=== PATIENT | male | born 1990 | race Caucasian/White ===

== ENCOUNTER 2020-10-13 21:17 | Emergency (ER) | payer BC, SELFPAY ==
[2020-10-13 21:22] VITALS: BP 152/88; PULSE 89; RESP 18; TEMP 35.7; O2SAT 100
--- NOTE | 2020-10-13 21:45 | ECG_ITS ---
Measurements Intervals [place] Rate: 83 P: 62 AR: 112 QRS: 68 QRSD: 94 T: 70 QT: 373 QTc: 440 Interpretive Statements SINUS RHYTHM WITH SINUS ARRHYTHMIA WITH SHORT AR INTERVAL ST ELEVATION IN ANTEROLAT/INF LEADS- PROBABLY EARLY REPOLARIZATION ABNORMALITY BORDERLINE ECG Electronically Signed On 10-14-2020 8:16:55 AGRICULTURE TECHNICIAN by Phill Desai D.O.
--- NOTE | 2020-10-13 21:51 | ED.GENADULT ---
HPI - General Adult General Chief complaint: Unspecified Stated complaint: left arm feels weird Time Seen by Provider: 10/13/20 21:40 History of Present Illness HPI narrative: Patient a 29-year-old gentleman who presents the emergency department with chief complaint of the left arm tingling. Patient states that he got upset and then noticed that he started having some tingling in his left arm and some pressure in his chest. Patient states that he also has some pain in his upper back and states that he was concerned that he was having a panic attack although he was also afraid that he may be having a heart attack. Patient states he starting to feel better now that he is calm down patient reports no prior medical history does report that he smokes cigarettes no history of cardiac disease at an early age no history of any connective tissue disorder or clotting disorder. Related Data Home Medications Medication Instructions Recorded Confirmed nicotine 1 patch TRANSDERMAL DAILY 10/13/20 Allergies Allergy/AdvReac Type Severity Reaction Status Date / Time No Known Allergies Allergy Verified 10/13/20 21:26 Review of Systems Review of Systems: Narrative: A 10 system review of systems was completed on the patient and is negative except for what is stated in the HPI. Nursing and ancillary documentation was reviewed. [facility] Social History Social History Gender identity (if verbalized by the patient): Male Sexual Orientation (if Verbalized by the Patient): Straight or Heterosexual Comments Patient denies significant past medical history Social history the patient smokes cigarettes and is currently attempting to quit Exam Narrative: Exam Narrative: GENERAL: Well-appearing, well-nourished, and in no acute distress. HEAD: Normocephalic, atraumatic. EYES: PERRLA and EOMI. ENT: Nares clear, no rhinorrhea or epistaxis. Mucous membranes moist. NECK: Supple. CHEST: Clear to auscultation. No respiratory distress. HEART: Regular rate and rhythm. No murmur heard. Normal peripheral pulses. ABDOMEN: Soft, nontender, nondistended, normal active bowel sounds. EXTREMITIES: Normal range of motion. No edema. SKIN: Warm, dry, no rash. NEURO: No focal deficits. Alert and oriented x3. PSYCH: Normal mood and affect. Course Course Emergency Course: EKG shows a sinus rhythm rate of [address] elevation or ST depression Vital Signs Vital signs: Vital Signs Temperature 35.7 C L 10/13/20 21:22 Pulse Rate 89 10/13/20 21:22 Respiratory Rate 18 10/13/20 21:22 Blood Pressure 152/88 H 10/13/20 21:22 Pulse Oximetry 100 10/13/20 21:22 Temperature 35.7 C L 10/13/20 21:22 Pulse Rate 89 10/13/20 21:22 Respiratory Rate 18 10/13/20 21:22 Blood Pressure 152/88 H 10/13/20 21:22 Pulse Oximetry 100 10/13/20 21:22 Medical Decision Making Vital Signs Vital Signs: Vital Signs Temperature 35.7 C L 10/13/20 21:22 Pulse Rate 89 10/13/20 21:22 Respiratory Rate 18 10/13/20 21:22 Blood Pressure 152/88 H 10/13/20 21:22 Pulse Oximetry 100 10/13/20 21:22 Temperature 35.7 C L 10/13/20 21:22 Pulse Rate 89 10/13/20 21:22 Respiratory Rate 18 10/13/20 21:22 Blood Pressure 152/88 H 10/13/20 21:22 Pulse Oximetry 100 10/13/20 21:22 Discharge Plan Discharge Clinical Impression: Atypical chest pain Patient Disposition: Home, Self-Care Condition: Stable Instructions: Antibiotic Form, Chest Pain (ED), Panic Attack (ED) Prescriptions: No Action nicotine 14 mg/24 hr Patch 24 Hour 1 patch TRANSDERMAL DAILY RF: 0 Follow-up/Referrals: Rex,Demian Alejo MD [Primary Care Provider] - 1 Week Time of Disposition: 22:21
[2020-10-13 22:36] VITALS: BP 117/73; PULSE 69; RESP 16; TEMP 36.9; O2SAT 100
== END 2020-10-13 22:37 | disposition home or self-care (01) ==
PROVIDERS: Emergency Provider Emergency Medicine; PCP Family Medicine
DX: R07.89 Other chest pain (principal); F17.210 Nicotine dependence, cigarettes, uncomplicated; R94.31 Abnormal electrocardiogram [ECG] [EKG]
CPT/HCPCS: 93005; 99283

== ENCOUNTER 2022-02-19 12:49 | Outpatient (CLI) | payer BC, SELFPAY ==
[2022-02-19 13:07] LABS: Basophils Percent Auto 0.6 % (0.2-1.2); Eosinophils Absolute Auto 0.1 K/mm3 (0-0.3); Eosinophils Percent Auto 1.4 % (0-4.4); Hematocrit 46.3 % (42.0-52.0); Hemoglobin 15.7 g/dL (14.0-18.0); Immature Granulocyte Absolute 0.04 K/mm3 (0.00-0.031); Immature Granulocyte Percent A 0.6 % (0-0.5); Lymphocytes Absolute Auto 1.51 K/mm3 (0.9-3.2); Lymphocytes Percent Auto 23.5 % (18.3-44.2); Mean Corpuscular HGB Conc 33.9 g/dl (32-36); Mean Corpuscular Volume 94.5 fl (80-100); Mean Platelet Volume 9.5 fl (7.4-10.4); Monocytes Absolute Auto 0.4 K/mm3 (0.1-0.6); Monocytes Percent Auto 6.1 % (2.6-8.5); Neutrophils Absolute Auto 4.4 K/mm3 (1.3-6.7); Neutrophils Percent Auto 67.8 % (45.5-73.1); Platelet Count Result 239 k/mm3 (150-375); Red Cell Distribution Width 12.4 % (11.5-14.5); White Blood Count 6.4 K/mm3 (4.5-10.0)
[2022-02-19 13:17] LABS: Alanine Aminotransferase 23 U/L (6-50); Albumin Level 4.8 g/dL (3.5-5.1); Alkaline Phosphatase 91 U/L (38-126); Anion Gap 8 mmol/L (8-16); Aspartate Amino Transferase 26 U/L (17-59); Bilirubin,Total 1.9 mg/dL (0.2-1.3); Blood Urea Nitrogen 11 mg/dL (9-20); Calcium 9.1 mg/dL (8.4-10.2); Carbon Dioxide 28 mmol/L (22-30); Chloride 103 mmol/L (98-107); Cholesterol 165 mg/dL (0-200); Estimated Glomerular Filt Rate > 60; Glucose 101 mg/dL (65-110); HDL Direct 59 mg/dL; Potassium 3.9 mmol/L (3.4-5.0); Sodium 139 mmol/L (137-145); Triglycerides 109 mg/dL (<150); Uric Acid 7.1 mg/dL (3.5-8.5)
[2022-02-19 13:28] LABS: LDL Cholesterol Direct 69 mg/dL
== END 2022-02-19 12:50 | disposition home or self-care (01) ==
LOC: ANHLAB 12:52
PROVIDERS: PCP Family Medicine; Visit Provider Family Medicine
DX: F32.A Depression, unspecified (principal); F41.9 Anxiety disorder, unspecified; M24.412 Recurrent dislocation, left shoulder; F17.200 Nicotine dependence, unspecified, uncomplicated; R10.9 Unspecified abdominal pain; R00.2 Palpitations
CPT/HCPCS: 36415; 80053; 80061; 84443; 84550; 85025

== ENCOUNTER 2022-04-18 01:41 | Emergency (ER) | payer BC, SELFPAY ==
[2022-04-18 01:47] VITALS: BP 153/98; PULSE 57; RESP 16; TEMP 36.4; O2SAT 100
[2022-04-18 02:08] LABS: Basophils Absolute Auto 0.1 K/mm3 (0.0-0.1); Basophils Percent Auto 0.6 % (0.2-1.2); Eosinophils Absolute Auto 0.1 K/mm3 (0-0.3); Eosinophils Percent Auto 1.1 % (0-4.4); Hematocrit 43.7 % (42.0-52.0); Hemoglobin 15.3 g/dL (14.0-18.0); Immature Granulocyte Absolute 0.04 K/mm3 (0.00-0.031); Immature Granulocyte Percent A 0.5 % (0-0.5); Lymphocytes Absolute Auto 2.61 K/mm3 (0.9-3.2); Mean Corpuscular Hemoglobin 31.9 pg (26-34); Mean Corpuscular Volume 91.2 fl (80-100); Mean Platelet Volume 9.4 fl (7.4-10.4); Monocytes Absolute Auto 0.7 K/mm3 (0.1-0.6); Monocytes Percent Auto 8.2 % (2.6-8.5); Neutrophils Absolute Auto 4.5 K/mm3 (1.3-6.7); Neutrophils Percent Auto 56.6 % (45.5-73.1); Platelet Count Result 254 k/mm3 (150-375); Red Blood Count 4.79 M/mm3 (4.6-6.20); White Blood Count 7.9 K/mm3 (4.5-10.0)
[2022-04-18 02:09] LABS: Appearance Urine Clear (Clear); Bilirubin Urine Negative (Negative); Blood Urine Negative (Negative); Color Urine Yellow (Yellow); Glucose Urine UA Negative (Negative); Ketones Urine Negative (Negative); Leukocyte Esterase Ur Negative LEU/UL (Negative); Nitrate Urine Negative (Negative); Protein Urine Negative (Negative)
[2022-04-18 02:18] LABS: Alanine Aminotransferase 37 U/L (6-50); Albumin Level 4.6 g/dL (3.5-5.1); Alkaline Phosphatase 83 U/L (38-126); Anion Gap 14 mmol/L (8-16); Aspartate Amino Transferase 39 U/L (17-59); Bilirubin,Total 1.9 mg/dL (0.2-1.3); Blood Urea Nitrogen 7 mg/dL (9-20); Calcium 9.2 mg/dL (8.4-10.2); Carbon Dioxide 25 mmol/L (22-30); Chloride 98 mmol/L (98-107); Estimated CRCL calculation 103 ml/min; Estimated Glomerular Filt Rate > 60; Glucose 112 mg/dL (65-110); Lipase 42 U/L (23-300); Potassium 3.7 mmol/L (3.4-5.0); Sodium 137 mmol/L (137-145)
[2022-04-18 02:34] LABS: Add Urine Microscopic? NO
--- NOTE | 2022-04-18 03:11 | PC.NURSE ---
Patient report given to HOLLY Berry. All questions answered and care of patient transferred.
--- NOTE | 2022-04-18 03:17 | ED.NAVMDI ---
HPI - Nausea/Vomiting/Diarrhea General Chief complaint: Nausea/Vomiting/Diarrhea Stated complaint: n/v Time Seen by Provider: 04/18/22 02:55 History of Present Illness HPI Narrative: This is a 31-year-old male with past medical history of anxiety, presenting the emergency department complaining of nausea and vomiting for the past 27 hours after stopping drinking. Patient states he over the past approximately 5 months has drank half a pint of alcohol a day. He states he drank more than usual approximately 27 hours ago and has since then had the worst hangover ever . He denies hallucinations or loss of consciousness. Related Data Home Medications Medication Instructions Recorded Confirmed nicotine 14 mg/24 hr daily 1 patch transdermal DAILY 10/13/20 transdermal patch Allergies Allergy/AdvReac Type Severity Reaction Status Date / Time No Known Allergies Allergy Verified 10/13/20 21:26 Review of Systems Review of Systems: CONSTITUTIONAL: Denies fever, chills, or sweats. EYES: Denies visual changes, redness, or discharge. ENT: Denies rhinorrhea, congestion, sore throat, or otalgia. CARDIOVASCULAR: Denies chest pain, palpitations, or edema. RESPIRATORY: Denies cough or dyspnea. GASTROINTESTINAL: Nausea vomiting diarrhea denies abdominal pain GENITOURINARY: Denies dysuria or hematuria. SKIN: Denies rash or itching. MUSCULOSKELETAL: Denies back pain, joint pain, or myalgia. NEUROLOGIC: Headache denies numbness, dizziness, or weakness. PSYCHIATRIC: Denies anxiety or depression. PENDING SALE TO [facility] Social History Social History Gender identity (if verbalized by the patient): Male Sexual Orientation (if Verbalized by the Patient): Straight or Heterosexual Exam Narrative: GENERAL: Well-appearing, well-nourished, and in no acute distress. HEAD: Normocephalic, atraumatic. EYES: PERRLA and EOMI. ENT: Nares clear, no rhinorrhea or epistaxis. Mucous membranes moist. Oropharynx without tonsillar hypertrophy exudate or other lesions. NECK: Supple. No adenopathy or masses. No carotid bruits or JVD CHEST: Clear to auscultation. No respiratory distress. No wheezes rales or rhonchi HEART: Regular rate and rhythm. No murmur heard. Normal peripheral pulses. ABDOMEN: Soft, nontender, nondistended, normal active bowel sounds. EXTREMITIES: Normal range of motion. No edema. SKIN: Warm, dry, no rash. NEURO: No focal deficits. Alert and oriented x3. No noted tremors, no noted ataxia, strength 5/5 in all extremities, sensation intact, cranial nerves II through XII intact PSYCH: Normal mood and affect. Course Course Emergency Course: 03:20 - Initial CIWA 8 (mild withdrawal). Will treat patient with Librium taper. Discussed benefits of quitting alcohol and risks of continuing drinking including potential liver failure. Review of [facility] is not concerning for medication abuse. 03:59 - The patient requests to not take Librium at this time as he is anticipating driving and going to work. Discussed return emergency precautions including signs/symptoms concerning for delirium tremens. The patient voiced understanding is comfortable with the plan. All questions answered to his satisfaction. Vital Signs Vital signs: Vital Signs Temperature 97.5 F L 04/18/22 01:47 Pulse Rate 57 L 04/18/22 01:47 Respiratory Rate 16 04/18/22 01:47 Blood Pressure 153/98 H 04/18/22 01:47 Pulse Oximetry 100 04/18/22 01:47 Temperature 97.5 F L 04/18/22 01:47 Pulse Rate 57 L 04/18/22 01:47 Respiratory Rate 16 04/18/22 01:47 Blood Pressure 153/98 H 04/18/22 01:47 Pulse Oximetry 100 04/18/22 01:47 MDM - Nausea/Vomiting/Diarrhea MDM Narrative Medical decision making narrative: Plan: Labs, CIWA, reassess Differential Diagnosis Differential diagnosis: Likely other (Alcohol withdrawal, metabolic abnormality, other) Lab Data Result diagrams: 04/18/22 01:55
[2022-04-18 04:17] VITALS: BP 124/84; PULSE 82; RESP 18; O2SAT 100
== END 2022-04-18 04:20 | disposition home or self-care (01) ==
PROVIDERS: Emergency Provider Preventive Medicine Aerospace Medicine; PCP Family Medicine
DX: F10.230 Alcohol dependence with withdrawal, uncomplicated (principal); R11.2 Nausea with vomiting, unspecified
CPT/HCPCS: 36415; 80053; 81003; 83690; 85025; 99283

== ENCOUNTER 2023-12-28 06:10 | Emergency (ER) | payer BC, SELFPAY ==
--- NOTE | ~2023-12-28 | CT_ITS ---
EXAMINATION: CT brain wo con DATE: 12/28/2023 07:34 INDICATION: Headache. TECHNIQUE: Computed tomography (CT) of the head was performed without intravenous contrast. The mA wa s adjusted according to patient size. Iterative reconstruction technique was employed. The dose-lengt h product was 605.33 mGy-cm. COMPARISON: None FINDINGS: There is no intracranial hemorrhage, acute infarction, or abnormal intracranial mass lesion . The ventricles are normal in size. The orbits are normal. The mastoid air cells are normal. The par anasal sinuses are clear. IMPRESSION: 1. Normal brain. Reviewed, dictated and finalized at location A. IMPRESSION: 1. Normal brain.
[2023-12-28 06:13] VITALS: BP 133/87; PULSE 69; RESP 18; TEMP 36.4; O2SAT 100
--- NOTE | 2023-12-28 06:38 | ED.GENADULT ---
HPI - General Adult General Chief complaint: Unspecified Stated complaint: Lightheaded, unable to focus, muscle cramps? Time Seen by Provider: 12/28/23 07:10 History of Present Illness HPI narrative: Patient is a 33-year-old male who presents to the emergency department this morning with multiple complaints. Patient states that throughout the past week has been having headaches, muscle tightness, lightheadedness, and this weird feeling in his left arm and left leg. Patient does not describe the feeling as numbness or tingling, states that it feels tight. Patient states that his girlfriend was sick approximately 1 week ago and had a sore throat, presumably strep but she was not formally diagnosed with strep. Patient denies any chest pain or shortness of breath, denies any nausea or vomiting and has abdominal pain. He states that he tried to wait out his symptoms at home throughout this past week, however, his symptoms are not improving and finally decided to come to the emergency department for further evaluation. He denies any fevers or chills at home, denies any significant past medical history. Patient states that he used to be an alcoholic but has quit approximately 1 month ago. Related Data Home Medications Medication Instructions Recorded Confirmed nicotine 14 mg/24 hr daily 1 patch transdermal DAILY 10/13/20 transdermal patch Allergies Allergy/AdvReac Type Severity Reaction Status Date / Time No Known Allergies Allergy Verified 10/13/20 21:26 Review of Systems Review of Systems: All systems are reviewed and are negative unless stated otherwise in the HPI. [facility] Social History Social History Gender identity (if verbalized by the patient): Male Sexual Orientation (if Verbalized by the Patient): Straight or Heterosexual Exam Narrative: General: Alert, awake, afebrile, in no acute distress. HEENT: PERRL, no rhinorrhea, no post nasal drip, oropharynx clear. Neck: Trachea midline, no JVD, no lymphadenopathy. Cardiovascular: Regular rate and rhythm, no murmurs, rubs or gallops, no peripheral edema. Respiratory: Clear to auscultation bilaterally, no tachypnea, no wheezing, no rhonchi, no rubs, no respiratory distress. Abdomen: Soft, nontender, nondistended, no rebound, no guarding, no peritoneal signs. Musculoskeletal: No joint swelling or deformity, normal muscle tone. Skin: No rashes or petechia, no signs of infection. Psychiatric: Alert and oriented, normal behavior and judgment for situation. Neurological: Alert and oriented to person, place, and time. Follows all commands. No focal deficits, 5/5 motor strength of the bilateral upper and lower extremity, sensation intact bilateral upper and lower extremity, cranial nerves 2-12 grossly intact, speech is clear and fluent. Course Vital Signs Vital signs: Vital Signs Temperature 97.6 F 12/28/23 06:13 Pulse Rate 69 12/28/23 06:13 Respiratory Rate 18 12/28/23 06:13 Blood Pressure 133/87 12/28/23 06:13 Pulse Oximetry 100 12/28/23 06:13 Oxygen Delivery Room Air 12/28/23 06:13 Temperature 97.6 F 12/28/23 06:13 Pulse Rate 63 12/28/23 08:48 Respiratory Rate 15 12/28/23 08:48 Blood Pressure 121/88 12/28/23 08:48 Pulse Oximetry 98 12/28/23 08:48 Oxygen Delivery Room Air 12/28/23 06:13 Medical Decision Making MDM Narrative Medical decision making narrative: The patient was evaluated by myself in the emergency department. History is obtained from patient who is an independent historian and physical exam was performed. External medical records were reviewed at this time. IV was established and pertinent tests were ordered. Patient was administered a 1 L IV fluid bolus with normal saline. EKG was obtained which revealed sinus rhythm at a rate of 71 beats per minute. No ST changes, T wave inversions or evidence of acute ischemia. EKG was independent
--- NOTE | 2023-12-28 06:39 | ECG_ITS ---
SEE SCANNED COPY FOR CONFIRMED REPORT MTDD
[2023-12-28 07:03] VITALS: BP 128/92; PULSE 77; RESP 14; O2SAT 100
[2023-12-28 07:08] LABS: Basophils Percent Auto 0.5 % (0.2-1.2); Eosinophils Absolute Auto 0.2 K/mm3 (0-0.3); Eosinophils Percent Auto 2.1 % (0-4.4); Hematocrit 48.2 % (42.0-52.0); Hemoglobin 16.4 g/dL (14.0-18.0); Immature Granulocyte Absolute 0.02 K/mm3 (0.00-0.031); Immature Granulocyte Percent A 0.2 % (0-0.5); Lymphocytes Absolute Auto 3.13 K/mm3 (0.9-3.2); Lymphocytes Percent Auto 38.5 % (18.3-44.2); Mean Corpuscular Hemoglobin 30.1 pg (26-34); Mean Corpuscular Volume 88.4 fl (80-100); Mean Platelet Volume 10.1 fl (7.4-10.4); Monocytes Absolute Auto 0.5 K/mm3 (0.1-0.6); Monocytes Percent Auto 6.4 % (2.6-8.5); Neutrophils Absolute Auto 4.2 K/mm3 (1.3-6.7); Neutrophils Percent Auto 52.3 % (45.5-73.1); Platelet Count Result 257 k/mm3 (150-375); Red Blood Count 5.45 M/mm3 (4.6-6.20); Red Cell Distribution Width 12.5 % (11.5-14.5); White Blood Count 8.1 K/mm3 (4.5-10.0)
[2023-12-28 07:11] VITALS: PULSE 78
[2023-12-28 07:20] LABS: Alanine Aminotransferase 21 U/L (6-50); Alkaline Phosphatase 83 U/L (38-126); Anion Gap 10 mmol/L (4-12); Aspartate Amino Transferase 26 U/L (17-59); Bilirubin,Total 2.6 mg/dL (0.2-1.3); Blood Urea Nitrogen 14 mg/dL (9-20); Calcium 9.4 mg/dL (8.4-10.2); Carbon Dioxide 27 mmol/L (22-30); Chloride 103 mmol/L (98-107); Estimated CRCL calculation 101 ml/min; Estimated Glomerular Filt Rate > 60; Glucose 92 mg/dL (65-110); Potassium 3.6 mmol/L (3.4-5.0); Sodium 140 mmol/L (137-145)
[2023-12-28] MEDS: SODIUM CHLORIDE 0.9% IV 1,000 ML 999 ML IV CONT (07:21)
[2023-12-28 07:46] LABS: Creatine Kinase 84 U/L (55-170)
[2023-12-28 08:08] LABS: Influenza A QL RT-PCR Negative (Negative); Influenza B QL RT-PCR Negative (Negative); RSV RNA, RT-PCR Negative (Negative); SARS-CoV-2 RNA PCR Negative (Negative)
[2023-12-28 08:48] VITALS: BP 121/88; PULSE 63; RESP 15; O2SAT 98
== END 2023-12-28 08:49 | disposition home or self-care (01) ==
PROVIDERS: Emergency Medicine; Emergency Provider Emergency Medicine; PCP Family Medicine
DX: B34.9 Viral infection, unspecified (principal); E80.6 Other disorders of bilirubin metabolism; Z20.822 Contact with and (suspected) exposure to COVID-19
CPT/HCPCS: 36415; 70450; 80053; 82248; 82550; 83735; 85025; 87637; 93005; 96360; 99284; J7030

== ENCOUNTER 2023-12-30 20:52 | Emergency (ER) | payer BC, SELFPAY ==
--- NOTE | ~2023-12-30 | XR_ITS ---
EXAMINATION: XR chest 2V 12/30/2023 21:15 INDICATION: Worsening chest pain PROCEDURE: 2 view chest COMPARISON: No prior studies for comparison. FINDINGS: The lungs are clear. The cardiomediastinal silhouette is within normal limits. There are no pleural effusions. There is no pneumothorax suspected. IMPRESSION: 1: NO ACUTE CARDIOPULMONARY DISEASE. Reviewed, dictated and finalized at location A.
--- NOTE | 2023-12-30 20:53 | ECG_ITS ---
SEE SCANNED COPY FOR CONFIRMED REPORT MTDD
[2023-12-30 21:01] VITALS: BP 132/75; PULSE 75; RESP 16; TEMP 36.5; O2SAT 100
[2023-12-30 21:34] LABS: Basophils Percent Auto 0.3 % (0.2-1.2); Eosinophils Absolute Auto 0.1 K/mm3 (0-0.3); Hematocrit 50.3 % (42.0-52.0); Hemoglobin 17.6 g/dL (14.0-18.0); Immature Granulocyte Absolute 0.03 K/mm3 (0.00-0.031); Immature Granulocyte Percent A 0.5 % (0-0.5); Lymphocytes Absolute Auto 1.47 K/mm3 (0.9-3.2); Lymphocytes Percent Auto 25.4 % (18.3-44.2); Mean Corpuscular Hemoglobin 30.3 pg (26-34); Mean Corpuscular Volume 86.6 fl (80-100); Monocytes Absolute Auto 0.4 K/mm3 (0.1-0.6); Monocytes Percent Auto 6.2 % (2.6-8.5); Neutrophils Absolute Auto 3.9 K/mm3 (1.3-6.7); Neutrophils Percent Auto 66.6 % (45.5-73.1); Platelet Count Result 272 k/mm3 (150-375); Red Blood Count 5.81 M/mm3 (4.6-6.20); Red Cell Distribution Width 12.5 % (11.5-14.5); White Blood Count 5.8 K/mm3 (4.5-10.0)
[2023-12-30 21:40] VITALS: PULSE 79; O2SAT 99
[2023-12-30 21:44] LABS: Alanine Aminotransferase 20 U/L (6-50); Albumin Level 5.3 g/dL (3.5-5.1); Alkaline Phosphatase 78 U/L (38-126); Anion Gap 8 mmol/L (4-12); Aspartate Amino Transferase 23 U/L (17-59); Bilirubin,Total 3.1 mg/dL (0.2-1.3); Blood Urea Nitrogen 8 mg/dL (9-20); Calcium 10.1 mg/dL (8.4-10.2); Carbon Dioxide 29 mmol/L (22-30); Chloride 103 mmol/L (98-107); Estimated CRCL calculation 85 ml/min; Estimated Glomerular Filt Rate > 60; Glucose 91 mg/dL (65-110); Lipase 60 U/L (23-300); Potassium 4.1 mmol/L (3.4-5.0); Sodium 140 mmol/L (137-145)
[2023-12-30 21:45] VITALS: BP 123/86; PULSE 71; RESP 13; O2SAT 99
[2023-12-30 21:45] LABS: Partial Thromboplastin Time 29.9 Seconds (22.3-36.8); Prothrombin Time 13.1 Seconds (11.1-14.7)
[2023-12-30] MEDS: ASPIRIN 81 MG CHEWABLE TABLET 324 MG PO (21:50)
[2023-12-30 21:55] LABS: Troponin I < 0.012 ng/mL (0.000-0.034)
--- NOTE | 2023-12-30 22:45 | ED.CHESTPAIN ---
HPI - Chest Pain General Chief Complaint: Chest Pain Stated Complaint: chest tightness, SOB, dull pain in chest and arm Time Seen by Provider: 12/30/23 22:02 Source: patient Limitations: no limitations History of Present Illness HPI narrative: Patient is a 33-year-old male presents to the emergency department complaining of chest pain. Patient states he has been having a dull sensation in the middle left side of his chest for the past 1 week this seems to come and go becoming more frequent over the past few days, seems to last for a couple seconds when it is present in the goes away and has not noticed anything that brings it on or makes it go away, denies association with exertion, denies any history of this pain in the past. Admits to mild associated shortness of breath when he is having a. Patient also admits to having some left arm pain whenever the pain is present most admits to a slight headache over the past week and some nasal congestion some body aches. Patient denies any significant sputum production with the cough. Patient denies nausea, vomiting, abdominal pain, diarrhea, numbness, weakness, recent injuries, fevers. Patient denies history of high blood pressure or diabetes or high cholesterol. Patient denies family history of heart disease at a young age. Patient admits to being a smoker. Related Data Home Medications Medication Instructions Recorded Confirmed nicotine 14 mg/24 hr daily 1 patch transdermal DAILY 10/13/20 transdermal patch Allergies Allergy/AdvReac Type Severity Reaction Status Date / Time No Known Allergies Allergy Verified 10/13/20 21:26 Review of Systems Review of Systems: A 10 system review of systems was completed on the patient and is negative except for what is stated in the HPI. Nursing and ancillary documentation was reviewed. [facility] Social History Social History Gender identity (if verbalized by the patient): Male Sexual Orientation (if Verbalized by the Patient): Straight or Heterosexual Comments At time of signature, I have reviewed and agree with nursing past medical, surgical, social and family history unless otherwise noted. Please see the nursing chart for further information. There is no relevant family history pertinent to the presenting complaint. Exam Narrative: CONST: No acute distress. Well nourished. HENMT: Head is normocephalic and atraumatic. Moist mucous membranes. No posterior oropharynx erythema. EYES: No conjunctival icterus, injection, or pallor. PERRL. NECK: No meningeal signs. RESP: Able to speak in full sentences. Normal respiratory effort. CTAB. CARDIO: Regular rate. Regular rhythm. 2+ DP and radial pulses bilaterally. GI: Nondistended. No tenderness to palpation. Soft. : No CVA tenderness to palpation. SKIN: No rashes or lesions noted on exposed skin. NEURO: Oriented x3. Moves all extremities. No focal neurological deficits. EXTREM/MSK/BACK: No pedal edema. PSYCH: Normal affect. Course Vital Signs Vital signs: Vital Signs Temperature 97.7 F 12/30/23 21:01 Pulse Rate 75 12/30/23 21:01 Respiratory Rate 16 12/30/23 21:01 Blood Pressure 132/75 12/30/23 21:01 Pulse Oximetry 100 12/30/23 21:01 Oxygen Delivery Room Air 12/30/23 21:01 Temperature 97.7 F 12/30/23 21:01 Pulse Rate 71 12/30/23 21:45 Respiratory Rate 13 12/30/23 21:45 Blood Pressure 123/86 12/30/23 21:45 Pulse Oximetry 99 12/30/23 21:45 Oxygen Delivery Room Air 12/30/23 21:40 MDM - Chest Pain MDM Narrative Medical decision making narrative: Patient presents with the above complaint. Initial vitals are remarkable for no significant abnormalities. Physical examination as noted above. Plan discussed: Laboratory analysis, EKG, chest x-ray, continues cardiac monitoring, continuous pulse oximetry. PERC criteria applied, no indication for PE work up. Differenti
[2023-12-30] MEDS: IBUPROFEN 600 MG TABLET PO (22:57)
[2023-12-30 23:36] LABS: Influenza A QL RT-PCR Negative (Negative); Influenza B QL RT-PCR Negative (Negative); RSV RNA, RT-PCR Negative (Negative); SARS-CoV-2 RNA PCR Negative (Negative)
== END 2023-12-30 23:47 | disposition home or self-care (01) ==
PROVIDERS: Emergency Provider Student in an Organized Health Care Education/Training Program; PCP Family Medicine
DX: R07.9 Chest pain, unspecified (principal); Z20.822 Contact with and (suspected) exposure to COVID-19; F17.200 Nicotine dependence, unspecified, uncomplicated
CPT/HCPCS: 36415; 71046; 80053; 83690; 84484; 85025; 85610; 85730; 87637; 93005; 99284; A9270